=== PATIENT | female | born 1990 | race Caucasian/White ===

== ENCOUNTER 2020-06-16 21:48 | Emergency (ER) | payer OTHER, SELFPAY ==
--- NOTE | ~2020-06-16 | CT_ITS ---
EXAMINATION: CTA chest PE protocol DATE: 06/16/2020 23:46 INDICATION: Pleuritic chest pain. Elevated d-dimer. TECHNIQUE: Computed tomography (CT) pulmonary angiogram of the chest was performed with 100 mL Omnipa que-350 intravenous contrast. Additional 3D reconstructions utilizing coronal maximum intensity proje ction (MIP) were performed. Automated exposure control and iterative reconstruction technique were em ployed. The dose-length product was 954.73 mGy-cm. COMPARISON: None FINDINGS: Excellent contrast opacification of the pulmonary arteries. There is mild streak artifact from dense contrast in the superior vena cava and right atrium. Mild scattered respiratory motion artifact which does not significantly limit evaluation. No pulmonary embolism. Minimal atelectasis in the dependent lungs. No pneumonia, pulmonary edema, pleural effusion or pneumothorax. Heart size is normal. No per icardial effusion. Thoracic aorta is normal in caliber with no dissection. No pathologically enlarged thoracic lymphadenopathy. Visualized upper abdomen and bones are unremarkable. IMPRESSION: 1. No pulmonary embolism or other acute cardiopulmonary disease. Reviewed, dictated and finalized at location A.
--- NOTE | ~2020-06-16 | XR_ITS ---
EXAMINATION: XR chest 2V DATE: 06/16/2020 22:39 INDICATION: Right-sided chest pain TECHNIQUE: PA and lateral views of the chest were obtained. COMPARISON: Chest radiograph dated 10/12/2009 FINDINGS: The lungs remain clear with no focal airspace opacities, pulmonary edema, pleural effusion or pneumot horax. The cardiomediastinal silhouette is normal. Visualized bones and soft tissues are unremarkable . IMPRESSION: 1. No acute cardiopulmonary disease. Reviewed, dictated and finalized at location A.
[2020-06-16 21:52] VITALS: BP 156/109; PULSE 77; RESP 16; TEMP 36.8; O2SAT 99
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
--- NOTE | 2020-06-16 22:33 | PC.NURSE ---
pt to xray at this time via stretcher
[2020-06-16 23:12] LABS: Basophils Percent Auto 0.5 % (0.2-1.2); Eosinophils Absolute Auto 0.2 K/mm3 (0-0.3); Eosinophils Percent Auto 2.1 % (0-4.4); Hematocrit 40.3 % (37.0-47.0); Hemoglobin 13.5 g/dL (12.0-15.0); Immature Granulocyte Absolute 0.03 K/mm3 (0.00-0.031); Immature Granulocyte Percent A 0.3 % (0-0.5); Lymphocytes Absolute Auto 3.24 K/mm3 (0.9-3.2); Mean Corpuscular HGB Conc 33.5 g/dl (32-36); Mean Corpuscular Hemoglobin 32.1 pg (26-34); Mean Platelet Volume 12.2 fl (7.4-10.4); Monocytes Absolute Auto 0.5 K/mm3 (0.1-0.6); Monocytes Percent Auto 5.7 % (2.6-8.5); Neutrophils Absolute Auto 4.8 K/mm3 (1.3-6.7); Neutrophils Percent Auto 54.4 % (45.5-73.1); Platelet Count Result 267 k/mm3 (150-375); Red Cell Distribution Width 12.5 % (11.5-14.5); White Blood Count 8.8 K/mm3 (4.5-10.0)
[2020-06-16 23:17] LABS: Anion Gap 6 mmol/L (8-16); Blood Urea Nitrogen 20 mg/dL (7-17); Calcium 8.6 mg/dL (8.4-10.2); Carbon Dioxide 25 mmol/L (22-30); Chloride 108 mmol/L (98-107); Estimated Glomerular Filt Rate > 60; Glucose 125 mg/dL (65-105); Partial Thromboplastin Time 29.3 SECONDS (22.3-36.8); Potassium 3.6 mmol/L (3.4-5.0); Sodium 139 mmol/L (137-145)
[2020-06-16] MEDS: ONDANSETRON INJ 4 MG/2 ML VIAL IV PUSH (23:17)
[2020-06-16] MEDS: MORPHINE SULFATE (*CRX) 4 MG/ML INJ IV PUSH (23:18)
[2020-06-16 23:19] LABS: D Dimer 0.64 ug/mL (<0.48)
[2020-06-16 23:24] LABS: Troponin I < 0.012 ng/mL (0.000-0.034)
--- NOTE | 2020-06-16 23:26 | ECG_ITS ---
Measurements Intervals [place] Rate: 85 P: 54 AK: 171 QRS: -9 QRSD: 115 T: 41 QT: 357 QTc: 427 Interpretive Statements SINUS RHYTHM INTRAVENTRICULAR CONDUCTION DELAY BORDERLINE R WAVE PROGRESSION, ANTERIOR LEADS BORDERLINE ECG Electronically Signed On 06-17-2020 6:26:11 CDT by Chris Herrera D.O.
[2020-06-16 23:27] VITALS: BP 135/85; PULSE 72; RESP 22; O2SAT 99
[2020-06-17 00:47] VITALS: BP 124/73; PULSE 71; RESP 18; O2SAT 98
[2020-06-17 00:47] LABS: Troponin I < 0.012 ng/mL (0.000-0.034)
[2020-06-17 01:17] VITALS: BP 124/78; PULSE 64; RESP 20; O2SAT 98
== END 2020-06-17 01:20 | disposition home or self-care (01) ==
PROVIDERS: Emergency Provider Emergency Medicine; PCP Pediatrics
DX: R07.89 Other chest pain (principal); Z87.442 Personal history of urinary calculi; Z87.440 Personal history of urinary (tract) infections; F17.210 Nicotine dependence, cigarettes, uncomplicated; I45.9 Conduction disorder, unspecified; R94.31 Abnormal electrocardiogram [ECG] [EKG]
CPT/HCPCS: 36415; 71046; 71275; 80048; 81025; 84484; 85025; 85380; 85610; 85730; 93005; 96374; 96375; 99284; J2270; J2405; Q9967

== ENCOUNTER 2020-06-28 15:23 | Outpatient (CLI) | payer OTHER, SELFPAY ==
--- NOTE | ~2020-06-28 | US_ITS ---
EXAMINATION:US venous doppler LE BI INDICATION:Elevated d-dimer TECHNIQUE: Multiple grayscale, color flow and Doppler images of the right and left lower extremity de ep venous systems were obtained and reviewed. COMPARISON:No prior studies for comparison. FINDINGS: The common femoral, superficial femoral and popliteal veins demonstrate normal respiratory variation, augmentation and compressibility. Color flow is also seen within the posterior tibial, pe roneal, greater saphenous and profunda veins. IMPRESSION: 1: No lower extremity deep venous thrombosis. Reviewed, dictated and finalized at location A.
== END 2020-06-28 15:24 | disposition home or self-care (01) ==
PROVIDERS: PCP Internal Medicine; Visit Provider Internal Medicine
DX: R79.1 Abnormal coagulation profile (principal)
CPT/HCPCS: 93970

== ENCOUNTER 2021-07-19 10:54 | Emergency (ER) | payer BC, OTHER, SELFPAY ==
--- NOTE | ~2021-07-19 | CT_ITS ---
EXAMINATION: CT abdomen pelvis w con EXAM DATE: 07/19/2021 13:08 INDICATION: Fever, abdominal pain. TECHNIQUE: Spiral CT of the abdomen and pelvis was performed following intravenous injection of 100 m L Omnipaque 350. Axial, coronal and sagittal images of the abdomen and pelvis were reviewed. The do se-length product (DLP) for this examination was 952.57 mGy-cm. The exposure was tailored according to patient size (auto mA exposure control), and iterative reconstruction (ASIR) was used as additiona l dose reduction technique. Prior study from 2010 not retrieving at this time. FINDINGS: The liver, spleen, adrenal glands and pancreas are unremarkable. Gallbladder is unremarkab le. No biliary obstruction. Portal and splenic veins are patent. Kidneys enhance symmetrically. T here is no hydronephrosis. The uterus is anteverted and morphologically normal. The bladder is un remarkable. There is no retroperitoneal or pelvic lymphadenopathy. The appendix is normal. Mild scattered colonic diverticulosis with inflammation at the splenic flexur e of the colon around a diverticulum, consistent with acute uncomplicated diverticulitis. The stomac h and small bowel are unremarkable. There is expected amount of colonic stool. No free intraperito van gas. The heart is normal in size. There are no pericardial or pleural effusions. The lung ba ses are unremarkable. The bones are unremarkable. IMPRESSION: Acute uncomplicated colonic diverticulitis at splenic flexure. Reviewed, dictated and finalized at location A. REMOVER
[2021-07-19 11:02] VITALS: BP 153/95; PULSE 68; RESP 16; TEMP 36.2; O2SAT 100
[2021-07-19 11:30] VITALS: BP 132/88; BP 141/87; PULSE 59; PULSE 74
[2021-07-19 11:32] VITALS: BP 139/100; PULSE 74
--- NOTE | 2021-07-19 12:04 | ED.ABDPAIN ---
HPI - Abdominal Pain General Chief Complaint: Abdominal Pain Stated Complaint: adb pain, fever Time Seen by Provider: 07/19/21 11:52 Source: patient Mode of arrival: ambulatory Limitations: no limitations History of Present Illness HPI narrative: This is a 30 year old female that presents to the ER for abdominal pain present over the last couple of days. Reports the pain is dull in nature. Also reports some flank pain. Reports history of recurrent UTIs, she is supposed to be on prophylactic antibiotics for this but is not currently. Also reports low-grade fevers and dysuria. Denies nausea, vomiting, or hematuria. Related Data Allergies Allergy/AdvReac Type Severity Reaction Status Date / Time doxycycline Allergy Mild Rash Verified 07/19/21 11:25 Penicillins Allergy Mild Rash Verified 07/19/21 11:25 tetracycline Allergy Mild Rash Verified 07/19/21 11:25 peanut oil Allergy Unknown Hives Verified 07/19/21 11:25 PEANUTS Allergy Mild Swelling Uncoded 07/19/21 11:25 of Lip/Tongue/Throat Review of Systems Review of Systems: CONSTITUTIONAL: Reports fever GASTROINTESTINAL: Reports abdominal pain. Denies nausea, vomiting, or diarrhea. GENITOURINARY: Reports dysuria. Denies hematuria. All systems reviewed & are unremarkable except as noted in HPI and below PMFSH Past Medical History Medical History (Updated 07/19/21 @ 14:52 by Carolina Goncalves PA-C) Nephrolithiasis Pyelonephritis Recurrent urinary tract infection Social History Social History (System 09/10/20 @ 14:41 by Jarrett Jones) Smoking status: Current every day smoker Tobacco type: cigarettes Alcohol intake: current Alcohol use details: Social, rarely Gender identity (if verbalized by the patient): Female Exam Narrative: GENERAL: Well-appearing, well-nourished, and in no acute distress. HEAD: Normocephalic, atraumatic. EYES: EOMI. CHEST: Clear to auscultation. No respiratory distress. No wheezes rales or rhonchi HEART: Regular rate and rhythm. No murmur heard. Normal peripheral pulses. ABDOMEN: Soft, nontender, nondistended, normal active bowel sounds. No CVA tenderness EXTREMITIES: Normal range of motion. No edema. SKIN: Warm, dry, no rash. NEURO: No focal deficits. Alert and oriented x3. PSYCH: Normal mood and affect Course Vital Signs Vital signs: Vital Signs Temperature 97.2 F L 07/19/21 11:02 Pulse Rate 68 07/19/21 11:02 Respiratory Rate 16 07/19/21 11:02 Blood Pressure 153/95 H 07/19/21 11:02 Pulse Oximetry 100 07/19/21 11:02 Temperature 97.2 F L 07/19/21 11:02 Pulse Rate 74 07/19/21 11:32 Respiratory Rate 16 07/19/21 11:02 Blood Pressure 139/100 H 07/19/21 11:32 Pulse Oximetry 100 07/19/21 11:02 MDM - Abdominal Pain MDM Narrative Medical decision making narrative: Patient presents to the emergency department for abdominal pain and low-grade fevers. She is afebrile in the ED and nontoxic-appearing. CBC is without leukocytosis. Does show mild hemoconcentration. Patient hydrated while in the ED. Metabolic panel and lipase without concerning findings. UA without evidence of infection. There are 4-6 white blood cells, but many squamous epithelial cells. This will be sent for her. Bedside test is negative. CT scan abdomen pelvis shows acute uncomplicated colonic diverticulitis at splenic flexure. Patient was updated on case findings. Will be started on oral antibiotics. She is stable and felt appropriate for further outpatient evaluation. She was given warnings to return to the ER Lab Data Attestation: I reviewed the patient's lab results. Result diagrams: 07/19/21 12:02 07/19/21 12:02 Labs: Lab Results 07/19/21 07/19/21 07/19/21 Range/Units 11:54 12:02 12:02 WBC 9.0 (4.5-10.0) K/mm3 RBC 4.67 (4.2-5.4) M/mm3 Hgb 15.3 H (12.0-15.0) g/dL Hct 44.9 (37.0-47.0) % MCV 96.1 (80-100) fl MCH 32.8 (26-34) pg MCHC
--- NOTE | 2021-07-19 12:07 | ECG_ITS ---
Measurements Intervals [place] Rate: 54 P: 51 RI: 182 QRS: -6 QRSD: 105 T: 19 QT: 413 QTc: 395 Interpretive Statements SINUS BRADYCARDIA DELAYED PRECORDIAL R/S TRANSITION BORDERLINE ECG Electronically Signed On 07-19-2021 19:47:13 FRONT OFFICE DIRECTOR by Chris Herrera D.O.
[2021-07-19 12:26] LABS: Basophils Percent Auto 0.4 % (0.2-1.2); Eosinophils Absolute Auto 0.2 K/mm3 (0-0.3); Eosinophils Percent Auto 1.8 % (0-4.4); Hematocrit 44.9 % (37.0-47.0); Hemoglobin 15.3 g/dL (12.0-15.0); Immature Granulocyte Absolute 0.02 K/mm3 (0.00-0.031); Immature Granulocyte Percent A 0.2 % (0-0.5); Lymphocytes Absolute Auto 2.06 K/mm3 (0.9-3.2); Lymphocytes Percent Auto 22.9 % (18.3-44.2); Mean Corpuscular HGB Conc 34.1 g/dl (32-36); Mean Corpuscular Hemoglobin 32.8 pg (26-34); Mean Corpuscular Volume 96.1 fl (80-100); Mean Platelet Volume 11.9 fl (7.4-10.4); Monocytes Absolute Auto 0.4 K/mm3 (0.1-0.6); Monocytes Percent Auto 4.4 % (2.6-8.5); Neutrophils Absolute Auto 6.3 K/mm3 (1.3-6.7); Neutrophils Percent Auto 70.3 % (45.5-73.1); Platelet Count Result 299 k/mm3 (150-375); Red Blood Count 4.67 M/mm3 (4.2-5.4); Red Cell Distribution Width 12.8 % (11.5-14.5)
[2021-07-19 12:36] LABS: Add Urine Microscopic? YES; Appearance Urine Cloudy (Clear); Bacteria Urine Trace /hpf; Bilirubin Urine Negative (Negative); Blood Urine Negative (Negative); Color Urine Yellow (Yellow); Glucose Urine UA Negative (Negative); Ketones Urine Negative (Negative); Leukocyte Esterase Ur 1+ LEU/UL (Negative); Mucus Urine Rare /lpf; Nitrate Urine Negative (Negative); Protein Urine Negative (Negative); Specific Grav Ur 1.018 (1.001-1.035); Squamous Epithelial Cell Urine Many /hpf (Few); Urobilinogen Urine Negative mg/dL (<2.0)
[2021-07-19 12:39] LABS: Alanine Aminotransferase 17 U/L (4-35); Albumin Level 4.6 g/dL (3.5-5.1); Alkaline Phosphatase 64 U/L (38-126); Anion Gap 10 mmol/L (8-16); Aspartate Amino Transferase 27 U/L (14-36); Bilirubin,Total 0.4 mg/dL (0.2-1.3); Blood Urea Nitrogen 14 mg/dL (7-17); Calcium 9.7 mg/dL (8.4-10.2); Carbon Dioxide 21 mmol/L (22-30); Chloride 106 mmol/L (98-107); Estimated CRCL calculation 110 ml/min; Estimated Glomerular Filt Rate > 60; Glucose 87 mg/dL (65-110); Lipase 51 U/L (23-300); Potassium 4.5 mmol/L (3.4-5.0); Sodium 137 mmol/L (137-145)
[2021-07-19] MEDS: SODIUM CHLORIDE 0.9% IV 1,000 ML 999 ML IV CONT (12:46)
[2021-07-19] MEDS: FAMOTIDINE 20 MG/2 ML VIAL IV PUSH (12:47)
[2021-07-19] MEDS: ONDANSETRON INJ 4 MG/2 ML VIAL IV PUSH (12:47)
[2021-07-19 15:19] VITALS: BP 133/93; PULSE 63; RESP 16; TEMP 36.4; O2SAT 98
== END 2021-07-19 15:20 | disposition home or self-care (01) ==
PROVIDERS: Emergency Provider Emergency Medicine
DX: K57.32 Diverticulitis of large intestine without perforation or abscess without bleeding (principal); F17.210 Nicotine dependence, cigarettes, uncomplicated; Z87.440 Personal history of urinary (tract) infections; Z87.442 Personal history of urinary calculi
CPT/HCPCS: 36415; 74177; 80053; 81001; 81025; 83690; 85025; 87086; 93005; 96361; 96374; 96375; 99284; J0131; J2405; J7030; Q9967

== ENCOUNTER 2023-05-22 12:34 | Emergency (ER) | payer OTHER, MEDICAID, SELFPAY ==
[2023-05-22 12:45] VITALS: BP 132/90; PULSE 76; RESP 16; TEMP 36.6; O2SAT 100
--- NOTE | 2023-05-22 12:50 | ED.EYEPROB ---
HPI - Eye Problem General Chief complaint: Eye Problems Stated complaint: Rt Eye Irritation Time Seen by Provider: 05/22/23 12:46 Source: patient, RN notes reviewed and old records reviewed Mode of arrival: ambulatory Limitations: no limitations History of Present Illness HPI Narrative: 32-year-old female presents to the [facility] with complaints of right eye pain. States that she was trying on a sure when a tag from the sure scratched her eye. last tDap 05/2019 States that she had a lot of tearing and pain yesterday. States when her eyes are dilated that she sees a little line in the outer aspect. Denies any change in vision otherwise. Related Data Patient tetanus UTD: Yes Home Medications Medication Instructions Recorded Confirmed etonogestrel 68 mg subdermal See Rx Instructions .Route .COMPLEX 05/22/23 05/22/23 implant (Nexplanon) Allergies Allergy/AdvReac Type Severity Reaction Status Date / Time peanut oil Allergy Severe Swelling Verified 05/22/23 12:42 of Lip/Tongue/Throat doxycycline AdvReac Mild Rash Verified 05/22/23 12:42 Penicillins AdvReac Mild Rash Verified 05/22/23 12:42 tetracycline AdvReac Mild Rash Verified 05/22/23 12:42 PEANUTS Allergy Severe Swelling Uncoded 05/22/23 12:42 of Lip/Tongue/Throat Review of Systems Review of Systems: All systems reviewed & are unremarkable except as noted in HPI and below Constitutional: Constitutional: Reports no additional constitutional complaints Eyes: Eyes: Reports as per HPI, Reports irritation and Reports eye pain ENT: Reports system reviewed and no additional complaints, except as documented Cardiovascular: Cardiovascular: Reports no additional cardiovascular complaints, Denies chest pain and Denies dyspnea Respiratory: Respiratory: Reports no additional respiratory complaints, Denies chest congestion, Denies cough and Denies dyspnea Gastrointestinal: Gastrointestinal: Reports no additional gastrointestinal complaints, Denies abdominal pain, Denies nausea and Denies vomiting Musculoskeletal: Musculoskeletal: Reports no additional musculoskeletal complaints Integumentary/Breasts: Skin/Breast: Reports system reviewed and no additional complaints, except as docu Neurologic: Reports system reviewed and no additional complaints, except as documented Psychiatric: Psychiatric: Reports no additional psychiatric complaints Allergic/Immunologic: Allergic/Immunologic: Reports no additional allergic/immunologic complaints PMFSH Past Medical History Medical History Depression Diverticulosis H/O hidradenitis suppurativa Hidradenitis Nephrolithiasis Pyelonephritis Recurrent urinary tract infection Family History Family History Father Basal cell carcinoma Mother Depression Alcoholism Sibling Depression Grandparent Heart disease Hypertension Cerebrovascular accident Social History Social History Smoking packs per day: 5 Smoking cigarettes per day: 100.0 Smoking status: Current every day smoker Tobacco type: cigarettes Alcohol intake: never Alcohol use details: Social, rarely Substance use: unknown Lack of Transportation: No Lack of Food: Never True Current Housing: I Have Housing Concerned About Future Housing: No Difficulty Paying Gas/Electric Bills: No Difficulty Paying for Meds: No Currently Unemployed: No Education: Associate Degree Difficulty w/ Childcare or Family Care: No Living arrangements: with family Gender identity (if verbalized by the patient): Female Comments At the time of my signature, I reviewed and agree with the nursing past medical, surgical, social, and family history. There is no relevant family history pertinent to the patient complaint. Exam Const: General: cooperative, healthy appearing,
== END 2023-05-22 13:05 | disposition home or self-care (01) ==
PROVIDERS: Emergency Provider Nurse Practitioner; PCP Physician Assistant
DX: S05.01XA Injury of conjunctiva and corneal abrasion without foreign body, right eye, initial encounter (principal); W22.8XXA Striking against or struck by other objects, initial encounter; F17.210 Nicotine dependence, cigarettes, uncomplicated; F32.A Depression, unspecified
CPT/HCPCS: 99213; A9270; G0463

== ENCOUNTER 2023-06-18 20:32 | Emergency (ER) | payer OTHER, MEDICAID, SELFPAY ==
[2023-06-18 20:36] VITALS: BP 140/96; PULSE 110; RESP 14; TEMP 36.8; O2SAT 98
--- NOTE | 2023-06-18 21:33 | ED.DENTAL ---
HPI - Dental/Oral General Chief complaint: Dental/Oral Stated complaint: dental pain Time Seen by Provider: 06/18/23 21:12 Source: patient Mode of arrival: ambulatory Limitations: no limitations History of Present Illness HPI Narrative: Patient is a 32-year-old female who presents to the ED with report of dental pain. Patient reports having pain along her right lower posterior teeth/previous wisdom tooth extraction site (#32) for the last 1 week. Pain has been worsening over the week. She has been taking ibuprofen with some relief. She reports some purulent drainage with flossing, but otherwise denies drainage with eating. Denies swelling along lateral cheek. Denies fevers. Denies difficulty breathing or swallowing. Patient was unable to get into her dentist today. Related Data Home Medications Medication Instructions Recorded Confirmed etonogestrel 68 mg subdermal See Rx Instructions .Route .COMPLEX 05/22/23 05/22/23 implant (Nexplanon) Allergies Allergy/AdvReac Type Severity Reaction Status Date / Time peanut oil Allergy Severe Swelling Verified 06/18/23 20:50 of Lip/Tongue/Throat doxycycline AdvReac Mild Rash Verified 06/18/23 20:50 Penicillins AdvReac Mild Rash Verified 06/18/23 20:50 tetracycline AdvReac Mild Rash Verified 06/18/23 20:50 PEANUTS Allergy Severe Swelling Uncoded 06/18/23 20:40 of Lip/Tongue/Throat Review of Systems Review of Systems: CONSTITUTIONAL: Denies fever, chills, or sweats. ENT: See HPI. CARDIOVASCULAR: Denies chest pain. RESPIRATORY: Denies dyspnea. GASTROINTESTINAL: Denies abdominal pain, nausea, vomiting. All systems reviewed & are unremarkable except as noted in HPI and below PMFSH Past Medical History Medical History Depression Diverticulosis H/O hidradenitis suppurativa Hidradenitis Nephrolithiasis Pyelonephritis Recurrent urinary tract infection Family History Family History Father Basal cell carcinoma Mother Depression Alcoholism Sibling Depression Grandparent Heart disease Hypertension Cerebrovascular accident Social History Social History Smoking packs per day: 5 Smoking cigarettes per day: 100.0 Smoking status: Current every day smoker Tobacco type: cigarettes Alcohol intake: never Alcohol use details: Social, rarely Substance use: unknown Lack of Transportation: No Lack of Food: Never True Current Housing: I Have Housing Concerned About Future Housing: No Difficulty Paying Gas/Electric Bills: No Difficulty Paying for Meds: No Currently Unemployed: No Education: Associate Degree Difficulty w/ Childcare or Family Care: No Living arrangements: with family Gender identity (if verbalized by the patient): Female Exam Narrative: GENERAL: Well appearing, morbidly obese with BMI of 43.1, non-toxic, in no acute distress. HEAD: Normocephalic, atraumatic. ENT: TTP surrounding inner and outer gumline of tooth #32 and wisdom tooth site R lower posterior region. No focal abscess or drainage. No tenderness along right facial cheek, parotid region. No drainage noted from glands. No tonsillar hypertrophy or exudate. Uvula midline. Maintaining secretions. No trismus or stridor. NECK: Supple. No adenopathy, no masses. RESPIRATORY: Airway patent, respirations nonlabored. Clear to auscultation bilaterally, no rales, rhonchi, wheezing. No stridor or distress. CARDIOVASCULAR: Regular rate and rhythm without murmurs, rubs, or gallops. Radial pulses 2+ and equal bilaterally. MUSCULOSKELETAL: Moves all extremities. No gross deformities. SKIN: Warm, dry, normal color. No rashes. NEURO: A&O X3. Speech clear. Cranial nerves II-XII grossly intact. Steady gait. No ataxic movements. PSYCHIATRIC: Appropriate mood and affect. Nor
[2023-06-18] MEDS: CLINDAMYCIN HCL 150 MG CAP 450 MG PO (21:58)
[2023-06-18] MEDS: HYDROcodone/acetaminophen (*CRX) 5-325 MG TABLET 1 TAB PO (21:58)
== END 2023-06-18 22:03 | disposition home or self-care (01) ==
PROVIDERS: Emergency Provider Physician Assistant; PCP Physician Assistant
DX: K08.89 Other specified disorders of teeth and supporting structures (principal); F17.210 Nicotine dependence, cigarettes, uncomplicated
CPT/HCPCS: 99283; A9270

== ENCOUNTER 2023-08-13 15:04 | Outpatient (CLI) | payer OTHER, MEDICAID, SELFPAY ==
[2023-08-13 15:33] LABS: Appearance Urine Clear (Clear); Bilirubin Urine Negative (Negative); Blood Urine Negative (Negative); Color Urine Yellow (Yellow); Glucose Urine UA Negative (Negative); Ketones Urine Negative (Negative); Leukocyte Esterase Ur Negative LEU/UL (NEGATIVE); Nitrate Urine Negative (Negative); Protein Urine Negative (Negative); Specific Grav Ur 1.002 (1.001-1.035); Urobilinogen Urine 0.2 mg/dL (<2.0)
[2023-08-13 15:38] LABS: Add Urine Microscopic? NO
== END 2023-08-13 15:05 | disposition home or self-care (01) ==
LOC: ANHLAB 15:07
PROVIDERS: PCP Physician Assistant; Visit Provider Physician Assistant
DX: R30.0 Dysuria (principal)
CPT/HCPCS: 81003; 87086

== ENCOUNTER 2023-08-24 16:19 | Emergency (ER) | payer OTHER, MEDICAID, SELFPAY ==
[2023-08-24 16:25] VITALS: BP 166/87; PULSE 84; RESP 16; TEMP 36.6; O2SAT 98
--- NOTE | 2023-08-24 20:08 | PC.NURSE ---
Pt approached triage desk and states she is going to leave. Pt ambulated out of ED in no obvious distress.
== END 2023-08-24 21:04 | disposition left against medical advice (07) ==
LOC: ANHED 20:26
PROVIDERS: PCP Physician Assistant
DX: Z53.21 Procedure and treatment not carried out due to patient leaving prior to being seen by health care provider (principal)
CPT/HCPCS: 99199

== ENCOUNTER 2023-08-25 10:15 | Emergency (ER) | payer OTHER, MEDICAID, SELFPAY ==
--- NOTE | ~2023-08-25 | US_ITS ---
EXAMINATION: US pelvic complete w TV DATE: 08/25/2023 16:27 INDICATION: Pelvic pain Comparison:No prior studies for comparison. TECHNIQUE: Multiple transabdominal and endovaginal sonographic images of the pelvis performed. FINDINGS: The uterus measures 9 x 3.7 x 5 cm. There is a focal hyperechoic structure at the cervix ne ar the scar, likely fibrosis from prior surgery. The endometrial complex measures 3 mm. The right ovary measures 2.6 x 2 x 1.8 cm and the left ovary measures 1.9 x 1.4 x 1.5 cm. There are small follicles in each ovary. Normal doppler signal in both ovaries. There is no free fluid in the pelvis. There are no abnormal masses seen on either side. IMPRESSION: 1. Unremarkable pelvic ultrasound. Reviewed, dictated and finalized at location B. HER CURLING MACHINE OPERATOR
[2023-08-25 10:17] VITALS: BP 152/98; PULSE 75; RESP 20; TEMP 36.3; O2SAT 98
--- NOTE | 2023-08-25 14:49 | ED.FEMALEGU ---
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 Ongoing over the last month. Reports abnormal discharge that she is unsure if it is coming from her vagina or in her urine. She has a Nexplanon and has been having more irregular periods than usual. Reports some nausea. No conern for STDs. Denies fever, vomiting. Related Data Home Medications Medication Instructions Recorded Confirmed etonogestrel 68 mg subdermal See Rx Instructions .Route .COMPLEX 05/22/23 05/22/23 implant (Nexplanon) Allergies Allergy/AdvReac Type Severity Reaction Status Date / Time peanut oil Allergy Severe Swelling Verified 06/18/23 20:50 of Lip/Tongue/Throat doxycycline AdvReac Mild Rash Verified 06/18/23 20:50 Penicillins AdvReac Mild Rash Verified 06/18/23 20:50 tetracycline AdvReac Mild Rash Verified 06/18/23 20:50 PEANUTS Allergy Severe Swelling Uncoded 06/18/23 20:40 of Lip/Tongue/Throat Review of Systems Review of Systems: CONSTITUTIONAL: Denies fever GASTROINTESTINAL: Reports abdominal pain, nausea. Denies vomiting, or diarrhea. GENITOURINARY: Reports dysuria All systems reviewed & are unremarkable except as noted in HPI and below PMFSH Past Medical History Medical History Depression Diverticulosis H/O hidradenitis suppurativa Hidradenitis Nephrolithiasis Pyelonephritis Recurrent urinary tract infection Family History Family History Father Basal cell carcinoma Mother Depression Alcoholism Sibling Depression Grandparent Heart disease Hypertension Cerebrovascular accident Social History Social History Smoking packs per day: 5 Smoking cigarettes per day: 100.0 Smoking status: Current every day smoker Tobacco type: cigarettes Alcohol intake: never Alcohol use details: Social, rarely Substance use: unknown Lack of Transportation: No Lack of Food: Never True Current Housing: I Have Housing Concerned About Future Housing: No Difficulty Paying Gas/Electric Bills: No Difficulty Paying for Meds: No Currently Unemployed: No Education: Associate Degree Difficulty w/ Childcare or Family Care: No Living arrangements: with family Gender identity (if verbalized by the patient): Female Exam Narrative: GENERAL: Well-appearing, well-nourished, and in no acute distress. HEAD: Normocephalic, atraumatic. EYES: EOMI. CHEST: Clear to auscultation. No respiratory distress. No wheezes rales or rhonchi HEART: Regular rate and rhythm. No murmur heard. Normal peripheral pulses. ABDOMEN: Soft, nontender, nondistended, normal active bowel sounds. EXTREMITIES: Normal range of motion. No edema. SKIN: Warm, dry, no rash. NEURO: No focal deficits. Alert and oriented x3. PSYCH: Normal mood and affect PELVIC: Normal external genitalia. Normal appearing cervix. Small amount of dark red blood in the vaginal vault Course Course Emergency Course: Patient updated on workup and agrees with plan of care Vital Signs Vital signs: Vital Signs Temperature 97.4 F L 08/25/23 10:17 Pulse Rate 75 08/25/23 10:17 Respiratory Rate 20 08/25/23 10:17 Blood Pressure 152/98 H 08/25/23 10:17 Pulse Oximetry 98 08/25/23 10:17 Oxygen Delivery Room Air 08/25/23 10:17 Temperature 97.4 F L 08/25/23 10:17 Pulse Rate 75 08/25/23 10:17 Respiratory Rate 20 08/25/23 10:17 Blood Pressure 152/98 H 08/25/23 10:17 Pulse Oximetry 98 08/25/23 10:17 Oxygen Delivery Room Air 08/25/23 10:17 MDM - Female Genitourinary MDM Narrative
[2023-08-25 14:57] LABS: Basophils Percent Auto 0.3 % (0.2-1.2); Eosinophils Absolute Auto 0.2 K/mm3 (0-0.3); Eosinophils Percent Auto 1.4 % (0-4.4); Hematocrit 45.5 % (37.0-47.0); Immature Granulocyte Absolute 0.04 K/mm3 (0.00-0.031); Immature Granulocyte Percent A 0.3 % (0-0.5); Lymphocytes Absolute Auto 3.19 K/mm3 (0.9-3.2); Lymphocytes Percent Auto 27.8 % (18.3-44.2); Mean Corpuscular Hemoglobin 31.6 pg (26-34); Mean Platelet Volume 11.7 fl (7.4-10.4); Monocytes Absolute Auto 0.5 K/mm3 (0.1-0.6); Neutrophils Absolute Auto 7.6 K/mm3 (1.3-6.7); Neutrophils Percent Auto 66.2 % (45.5-73.1); Platelet Count Result 329 k/mm3 (150-375); Red Blood Count 4.74 M/mm3 (4.2-5.4); Red Cell Distribution Width 12.4 % (11.5-14.5); White Blood Count 11.5 K/mm3 (4.5-10.0)
[2023-08-25 15:06] LABS: Appearance Urine Cloudy (Clear); Blood Urine 3+ (Negative); Color Urine Yellow (Yellow); Glucose Urine UA Negative (Negative); Ketones Urine Negative (Negative); Protein Urine Negative (Negative); Specific Grav Ur 1.007 (1.001-1.035); pH Urine 6.5 (5.0-9.0)
[2023-08-25 15:07] LABS: Bacteria Urine None Seen /hpf; Bilirubin Urine Negative (Negative); Leukocyte Esterase Ur Trace LEU/UL (Negative); Need Manual Microscopic Reviewed; Nitrate Urine Negative (Negative); Non Pathogenic Casts 0-2; RBC Urine 21-50 /hpf (0-2); Squamous Epithelial Cell Urine Few /hpf (Few); Urobilinogen Urine 0.2 mg/dL (<2.0); WBC Urine 0-5 /hpf
[2023-08-25 15:09] LABS: Add Urine Microscopic? YES
--- NOTE | 2023-08-25 15:31 | PC.NURSE ---
pt to ultrasound via wheelchair
[2023-08-25 15:42] LABS: Alanine Aminotransferase 25 U/L (6-35); Albumin Level 4.2 g/dL (3.5-5.1); Alkaline Phosphatase 65 U/L (38-126); Anion Gap 8 mmol/L (8-16); Aspartate Amino Transferase 26 U/L (14-36); Bilirubin,Total 0.5 mg/dL (0.2-1.3); Blood Urea Nitrogen 17 mg/dL (7-17); Calcium 9.3 mg/dL (8.4-10.2); Carbon Dioxide 22 mmol/L (22-30); Chloride 108 mmol/L (98-107); Estimated CRCL calculation 90 ml/min; Estimated Glomerular Filt Rate > 60; Glucose 82 mg/dL (65-110); Potassium 3.9 mmol/L (3.4-5.0); Sodium 138 mmol/L (137-145)
[2023-08-25 17:27] VITALS: BP 130/88; PULSE 75; RESP 16
== END 2023-08-25 17:27 | disposition home or self-care (01) ==
PROVIDERS: Emergency Provider Physician Assistant; PCP Physician Assistant
DX: R10.2 Pelvic and perineal pain (principal); F17.210 Nicotine dependence, cigarettes, uncomplicated
CPT/HCPCS: 36415; 76830; 76856; 80053; 81001; 81025; 85025; 99284

== ENCOUNTER 2023-10-13 11:49 | Emergency (ER) | payer OTHER, MEDICAID, SELFPAY ==
--- NOTE | ~2023-10-13 | US_ITS ---
EXAMINATION: US venous doppler LE RT DATE: 10/13/2023 13:09 INDICATION: Right calf pain. TECHNIQUE: Grayscale ultrasound images without and with compression and Doppler ultrasound images of the right lower extremity veins were obtained. COMPARISON: Ultrasound 06/28/2020 FINDINGS: The visualized portions of right common femoral vein, profunda (deep) femoral vein, femoral vein, pop liteal vein, peroneal veins, posterior tibial veins, and greater saphenous vein outflow are patent. IMPRESSION: 1. No deep venous thrombosis. Reviewed, dictated and finalized at location A. UTIVE RELATIONS SPECIALIST
[2023-10-13 11:55] VITALS: BP 149/87; PULSE 75; RESP 16; TEMP 36.6; O2SAT 97
--- NOTE | 2023-10-13 13:45 | ED.EXTPRO ---
HPI - Extremity Problem General Chief complaint: Extremity Problem,Nontraumatic Stated complaint: r/o dvt Time Seen by Provider: 10/13/23 11:59 History of Present Illness HPI Narrative: Patient is a 30-year-old female who presents to the emergency department this afternoon complaining of right lower extremity cramps. Patient states that initially the cramps started in her right calf but now feels it in the back of her right thigh. Cramping is intermittent. Patient saw her PCP and was sent in to rule out a DVT. Patient admits that she takes controls and we used to be a smoker but quit tobacco approximately 1 month ago. She works from home and is currently in school which causes her to spend a lot of times sitting down. Denies any family history of clotting disorder believes that her great great grandmother had a bleeding disorder she is unsure of. Patient is currently denying any chest pain or shortness of breath, denies any injuries or falls to her right lower extremity. The remainder of history of present illness review of systems negative unless stated otherwise in the HPI. Related Data Allergies Allergy/AdvReac Type Severity Reaction Status Date / Time peanut oil Allergy Severe Swelling Verified 09/24/23 14:08 of Lip/Tongue/Throat doxycycline AdvReac Mild Rash Verified 09/24/23 14:08 Penicillins AdvReac Mild Rash Verified 09/24/23 14:08 tetracycline AdvReac Mild Rash Verified 09/24/23 14:08 PEANUTS Allergy Severe Swelling Uncoded 09/24/23 14:08 of Lip/Tongue/Throat Review of Systems Review of Systems: All systems are reviewed and are negative unless stated otherwise in the HPI. [facility] Past Medical History Medical History delivery delivered Depression Diverticulosis H/O hidradenitis suppurativa Hidradenitis Nephrolithiasis Pyelonephritis Recurrent urinary tract infection Family History Family History Father Basal cell carcinoma Mother Depression Alcoholism Sibling Depression Grandparent Heart disease Hypertension Cerebrovascular accident Social History Social History Smoking packs per day: 5 Smoking cigarettes per day: 100.0 Smoking status: Current every day smoker Tobacco type: cigarettes Alcohol intake: never Alcohol use details: Social, rarely Substance use: unknown Lack of Transportation: No Lack of Food: Never True Current Housing: I Have Housing Concerned About Future Housing: No Difficulty Paying Gas/Electric Bills: No Difficulty Paying for Meds: No Currently Unemployed: No Education: Associate Degree Difficulty w/ Childcare or Family Care: No Living arrangements: with family Gender identity (if verbalized by the patient): Female Exam Narrative: General: Alert, awake, afebrile, in no acute distress. HEENT: PERRL, no rhinorrhea, no post nasal drip, oropharynx clear. Neck: Trachea midline, no JVD, no lymphadenopathy. Cardiovascular: Regular rate and rhythm, no murmurs, rubs or gallops, no peripheral edema. Respiratory: Clear to auscultation bilaterally, no tachypnea, no wheezing, no rhonchi, no rubs, no respiratory distress. Abdomen: Soft, nontender, nondistended, no rebound, no guarding, no peritoneal signs. Musculoskeletal: No joint swelling or deformity, normal muscle tone, no right lower extremity swelling noted, compartments are soft and compressible, intact DP and PT pulses of the right lower extremity. Skin: No rashes or petechia, no signs of infection. Psychiatric: Alert and oriented, normal behavior and judgment for situation. Neurological: Alert and oriented to person, place, and time. Follows all commands. No focal deficits, speech is clear and fluent. Course Vital Signs Vital signs: Vital Signs Temperature 97.9 F 10/13/23 11:55 P
== END 2023-10-13 14:11 | disposition home or self-care (01) ==
PROVIDERS: Emergency Provider Emergency Medicine; PCP Physician Assistant
DX: M62.831 Muscle spasm of calf (principal); F17.210 Nicotine dependence, cigarettes, uncomplicated; F32.A Depression, unspecified; Z87.440 Personal history of urinary (tract) infections
CPT/HCPCS: 93971; 99284

== ENCOUNTER 2024-09-25 17:25 | Emergency (ER) | payer OTHER, MEDICAID, SELFPAY ==
--- OUTSIDE RECORDS SUMMARY | 2024-09-25 17:38 | XMS_ITS | Encounter Summary ---
Author Organization [facility] Address [address] [place] [address]. [place] [address] [place] [address] Care Team Providers Care Wire Lather Name Role Phone Rachna Rosales NP Primary Care Provider [phone] Encounter Details Date Type Department Care Team (Late Contact Info) Description 01/18/2024 Lifeshare Technologiest Message Enc [facility] [address] [phone] Rachna Rosales NP [address] [address] medication Social History Tobacco Use Types Packs/Day Years Used Date Smoking Tobacco: Former Cigarettes 0.7 22.5 Q uit: 08/30/2023 Passive Smoke Exposure: Past Smokeless Tobacco: Never Comments:cold turkey Alcohol Use Standard Drinks/Week Comments Yes 0 (1 standard drink = 0.6 oz pure alcohol) not really drinking. very occasional. PHQ-2 Answer Date Recorded Patient Health Questionnaire-2 Score 0 01/06/2024 Comments No Sex and Gender Information Value Date Recorded Sex Assigned at Not on file Legal Sex Female 8:17 PM CDT Gender Identity Not on file Sexual Orientation Straight 09/22/2021 5: 32 AM COOK ROAST documented as of this encounter Plan of Treatment Upcoming Encounters Date Type Department Care Team (Late Contact Info) Description 09/26/2024 12:20 PM COOK ROAST Office Visit [facility] [address] [phone] Mckenzie Loyd MD [address] [place] [address] 10/19/2024 9:20 AM COOK ROAST Office Visit [facility] - [place] [address] [facility] [address] [place] [address] Rachna Rosales NP [address] [place] [address] documented as of this encounter Visit Diagnoses Not on filedocumented in this encounter Additional Health Concerns Infection Onset Date Last Indicated Resolved Time COVID-19 Rule Out 06/23/2024 06/23/2024 06/23/2024 9:13 PM CDT Assessment Noted Time PHQ-9 Depression Total Score: 2 01/06/20 24 9:41 AM CDT documented as of this encounter Care Teams Wire Lather Relationship Specialty Start Date End Date Rachna Rosales NP [address] [place] [address] PCP - General NURSE PRACTITIONER 09/16/21 documented as of this encounter
--- OUTSIDE RECORDS SUMMARY | 2024-09-25 17:38 | XMS_ITS | Encounter Summary ---
Author Organization [facility] Address [address] [place] [address]. [place] [address] [place] [address] Care Team Providers Care Mold Hoister Name Role Phone Rachna Rosales NP Primary Care Provider [phone] Encounter Details Date Type Department Care Team (Late st Contact Info) Description 03/01/2024 vArmourt Message Enc [facility] [address] [phone] Rachna Rosales NP [address] [phone] Follow up Social History Tobacco Use Types Packs/Day Years [...] Sexual Orientation Straight 09/22/2021 5: 32 AM ERP SPECIALIST documented as of this encounter Plan of Treatment Upcoming Encounters Date Type Department Care Team (Late st Contact Info) Description 09/26/2024 12:20 PM ERP SPECIALIST Office Visit [facility] [address] [phone] Mckenzie Loyd MD [address] [place] [address] 10/19/2024 9:20 AM ERP SPECIALIST Office Visit [facility] Family Medicine - [place] [address] [facility] [address] [place] [address] Rachna Rosales NP [address] [place] [address] documented as of this encounter Visit Diagnoses Not on filedocumented in this encounter Additional Health Concerns Infection Onset Date Last Indicated Resolved Time COVID-19 Rule Out 06/23/2024 06/23/2024 06/23/2024 9:13 PM CDT Assessment Noted Time PHQ-9 Depression Total Score: 2 01/06/20 24 9:41 AM CDT documented as of this encounter Care Teams Mold Hoister Relationship Specialty Start Date End Date Rachna Rosales NP [address] [place] [address] [place] [address] PCP - General NURSE PRACTITIONER 09/16/21 documented as of this encounter
--- OUTSIDE RECORDS SUMMARY | 2024-09-25 17:38 | XMS_ITS | Encounter Summary ---
Author Organization [facility] Address [address] [place] [address]. [place] [address] [place] [address] Care Team Providers Care Application Support Analyst Name Role Phone Rachna Rosales NP Primary Care Provider [phone] [phone] Encounter Details Date Type Department Care Team (Late st Contact Info) Description 09/25/2024 Queue Software Inchart Message Enc [facility] [address] [phone] Rachna Rosales NP [address] [phone] urine check Social History Tobacco Use Types Packs/Day Years [...] Sexual Orientation Straight 09/22/2021 5: 32 AM WINTERIZER documented as of this encounter Plan of Treatment Upcoming Encounters Date Type Department Care Team (Late st Contact Info) Description 09/26/2024 12:20 PM WINTERIZER Office Visit [facility] [address] [phone] Mckenzie Loyd MD [address] [place] [address] 10/19/2024 9:20 AM WINTERIZER Office Visit [facility] Family [facility] - [place] [address] [facility] [address] [place] [address] Rachna Rosales NP [address] [place] [address] documented as of this encounter Visit Diagnoses Not on filedocumented in this encounter Additional Health Concerns Assessment Noted Time PHQ-9 Depression Total Score: 2 01/06/20 24 9:41 AM CDT documented as of this encounter Care Teams Application Support Analyst Relationship Specialty Start Date End Date Rachna Rosales NP [address] [place] [address] [place] [address] PCP - General NURSE PRACTITIONER 09/16/21 documented as of this encounter
--- OUTSIDE RECORDS SUMMARY | 2024-09-25 17:38 | XMS_ITS | Clinical Summary ---
Author Organization [facility] Address [address] [place] [address]. [place] [address] [place] [address] Care Team Providers Care Program Eligibility Specialist Name Role Phone Rachna Rosales NP Primary Care Provider [phone] [phone] Allergies Active Allergy Reactions Criticality Noted Date Comments Penicillins Hives,Rash Medium 09/30/2021 Medications ondansetron (ZOFRAN) 4 MG tabletIndication s:Nausea Take 1 tablet (4 mg total) by mouth every 8 (eight) hours as needed. 20 tablet 4 Active WINLEVI 1 % Cream 4 Active tirzepatide (MOUNJARO) 5 MG/0.5ML injectionIndicat ions:Diabetes Mellitus Inject 5 mg into the skin once a week. Indications: Diabetes 3 mL 3 4 Active spironolactone (ALDACTONE) 50 MG tablet Take 1 tablet (50 mg total) by mouth daily. 4 Active fluconazole (DIFLUCAN) 150 MG tabletIndication s:Vaginal yeast infection Take one tablet by mouth. May repeat in 72 hours if needed. 2 tablet 4 Active levothyroxine (SYNTHROID) 25 MCG tabletIndication s:Hypothyroidism , unspecified type TAKE 1 TABLET BY MOUTH EVERY MORNING 90 tablet 1 4 Active metFORMIN ER (GLUCOPHAGE-XR) 500 MG 24 hr tabletIndication s:Insulin resistance TAKE 1 TABLET BY MOUTH EVERY DAY WITH BREAKFAST 90 tablet 1 4 Active Active Problems Problem Noted Date Diagnosed Date Obesity (BMI 35.0-39.9 without comorbidity) 03/2022 Current smoker 09/30/2021 Genital herpes simplex, unspecified site 022 Anxiety 09/25/2021 Chronic post-traumatic stress disorder (PTSD) Depression 09/25/2021 Diverticulitis 08/12/2021 Encounters Date Type Department Care Team Description 09/25/2024 MyChart Message Enc [facility] [address] [place] [address] Rachna Rosales NP urine check 07/10/2024 Telephone [facility] [address] [place] [address] Rachna Rosales NP Yeast Infection; Medication Request from Last 3 Months Immunizations Name Administration Dates Next Due Hepatitis A (Generic) 05/13/2023 Family History Medical History Relation Comments Cancer Father Diabetes Father Kidney Disease Father father from stage 5 kidney disease 06/23/2023 Stroke Father Cancer Paternal Grandfather Relation Status Comments Father Paternal Grandfather Social History Tobacco Use Types Packs/Day Years Used Date Smoking Tobacco: Former Cigarettes 0.7 22.5 Q uit: 08/30/2023 Passive Smoke Exposure: Past Smokeless Tobacco: Never Tobacco Cessation:Counseling Given: Not Answered Comments:cold turkey Alcohol Use Standard Drinks/Week Comments [...] Sexual Orientation Straight 09/22/2021 5: 32 AM SYSTEMS DEVELOPMENT CONSULTANT Last Filed Vital Signs Vital Sign Reading Time Taken Comments Blood Pressure 130/80 06/23/2024 10:48 PM CDT Pulse 90 06/23/2024 10:48 PM CDT Temperature 36.1 ??C (97 ??F) 06/23/2024 10:48 PM CDT Respiratory Rate 18 06/23/2024 10:48 PM CDT Oxygen Saturation 98% 06/23/2024 10:48 PM CDT Inhaled Oxygen Concentration - - Weight 86.2 kg (190 lb) 06/23/2024 8:45 PM CDT Height 160 cm (5' 3 ) 06/23/2024 8:45 PM CDT Body Mass Index 33.66 06/23/2024 8:45 PM CDT Plan of Treatment Upcoming Encounters Date Type Department Care Team (Late st Contact Info) Description 09/26/2024 12:20 PM SYSTEMS DEVELOPMENT CONSULTANT Office Visit [facility] [address] [facility] [address] [place] [address] Mckenzie Loyd MD [address] [place], [place] [phone] 10/19/2024 9:20 AM SYSTEMS DEVELOPMENT CONSULTANT Office Visit [facility] [address] [facility] [address] [place] [address] Rachna Rosales NP [address] [place] [address] [place], [place] [address] Health Maintenance Due Date Last Done Comments Hepatitis B Vaccines (1 of 3 - 19+ 3-dose series) 2009 COVID-19 Vaccine (2023-2 5 season) 2024 Influenza Adult (#1) 2024 PHQ-2 (Physician [place]) 08/30/2024 01/06/2024 Annual Physical 01/05/2025 01/06/2024, 10/01/2022, 09/30/2021 Cervical Cancer Screening Pa p with HPV Testing (Age 30 to 64) Every 5 Years 12/05/2026 12/05/2021 Cervical Cancer Screening Pa p Smear (Age 30 to 64) Every 3 Years 01/30/2027 01/31/2024 Cervical Cancer Screening with HPV 01/30/2027 DTaP, Tdap and Td Vaccines ( 1 - Tdap) 08/30/2029 Postponed from 10/30 (Awaiting Documentation) Hepatitis C Completed 10/08/2021 HPV Vaccines Aged Out No longer eligi ble based on patient's age to complete this topic Meningococcal B Vaccine Aged Out No l onger eligible based on patient's age to complete this topic Meningococcal Vaccine Aged Out No hema saray eligible based on patient's age to complete this topic Pneumococcal Vaccine: Pediatrics (0 to 5 Years) and At-Risk Patients (6 to 64 Years) Aged Out No longer eligible b ased on patient's age to complete this topic RSV Immunizations Under 20 Months Aged Out No longer eligible b ased on patient's age to complete this topic Procedures Procedure Name Priority Date/Time Associated Diagnosis Comments OUTSIDE CYTOPATH CERV/VAG INTERPRET (PAP) (SCAN ORDER) 01/31/2024 OUTSIDE CYTOPATH CERV/VAG INTERPRET (PAP) 12/05/2021 12:00 AM CDT HEPATITIS C ANTIBODY Routine 10/08/2021 9:54 AM SYSTEMS DEVELOPMENT CONSULTANT Need for hepatitis C screening test from Last 3 Months or Most Recently Relevant to Health Maintenance Results * PAP SMEAR (SCAN ORDER) (01/31/2024) 01/31/2024 [facility] Scanned SCANNING Final Resu lt * PAP SMEAR WITH HPV (12/05/2021 12:00 AM CDT) 12/05/2021 Narrative 12/05/2021 12:00 AM CDT Ordered by an unspecified provider. us Documents Scanned SCANNING Edited Result - Final * HEPATITIS C ANTIBODY (10/08/2021 9:54 AM SYSTEMS DEVELOPMENT CONSULTANT) HEPATITIS C AB NON-REACTI VE NON-REACT SILVER 10/08/2021 8:28 PM SYSTEMS DEVELOPMENT CONSULTANT [facility] Comment: ANTIBODIES TO HCV NOT DETECTED. DOES NOT EXCLUDE THE POSSIBILITY OF EXPOSURE TO HCV. 10/08/2021 9:54 AM SYSTEMS DEVELOPMENT CONSULTANT us Rachna Rosales [facility] Final Res ult [facility] [address] [place] [address], [place] [phone] [id number] from Last 3 Months or Most Recently Relevant to Health Maintenance [place] [address] [facility] Care Teams Program Eligibility Specialist Relationship Specialty Start Date End Date Rachna Rosales NP [address] [address] [place] [address] PCP - General NURSE PRACTITIONER 09/16/21
[2024-09-25 18:27] VITALS: BP 128/89; PULSE 76; RESP 18; TEMP 36.4; O2SAT 98
--- NOTE | 2024-09-25 19:00 | ED.FEMALEGU ---
HPI - Female Genitourinary General Chief complaint: Urogenital-Female Stated complaint: Possible Bladder infection Time Seen by Provider: 09/25/24 19:01 Source: patient, RN notes reviewed and old records reviewed Mode of arrival: ambulatory Limitations: no limitations History of Present Illness HPI Narrative: patient presents with complaints of genital pain after sex with her last night. She reports this has happened in the past, she wants to make sure that she does not have a UTI. She is requesting that we not do a gynecological exam, as she does have 2 school age children with her. She does report that she has an appointment with her primary tomorrow, but wanted to make sure that she did not have a UTI that needed to be treated prior to her point Related Data Home Medications ?Medication ?Instructions ?Recorded ?Confirmed ?Last Taken ?Type levothyroxine 25 mcg capsule 25 mcg PO DAILY 01/26/24 01/31/24 Unknown History spironolactone 100 mg tablet mg 09/25/24 Unknown History tirzepatide 2.5 mg/0.5 mL mg subcut 09/25/24 Unknown History subcutaneous pen injector (Mounjaro) Allergies Allergy/AdvReac Type Severity Reaction Status Date / Time peanut oil Allergy Severe Swelling Verified 01/31/24 13:14 of Lip/Tongue/Throat doxycycline Allergy Mild Rash Verified 09/25/24 19:07 Penicillins Allergy Mild Rash Verified 09/25/24 19:07 tetracycline Allergy Mild Rash Verified 09/25/24 19:07 PEANUTS Allergy Severe Swelling Uncoded 01/31/24 13:14 of Lip/Tongue/Throat Review of Systems Review of Systems: All systems reviewed & are unremarkable except as noted in HPI and below Constitutional: Constitutional: Reports no additional constitutional complaints ENT: Reports system reviewed and no additional complaints, except as documented Cardiovascular: Cardiovascular: Reports no additional cardiovascular complaints Respiratory: Respiratory: Reports no additional respiratory complaints Gastrointestinal: Gastrointestinal: Reports no additional gastrointestinal complaints Genitourinary: Genitourinary: Reports dyspareunia PMFSH Past Medical History Medical History delivery delivered Depression Diverticulosis H/O hidradenitis suppurativa Hidradenitis Hypothyroid Nephrolithiasis Pyelonephritis Recurrent urinary tract infection Family History Family History Father Basal cell carcinoma Mother Depression Alcoholism Sibling Depression Grandparent Heart disease Hypertension Cerebrovascular accident Social History Social History Smoking packs per day: 5 Smoking cigarettes per day: 100.0 Smoking status: Former smoker Tobacco type: cigarettes Alcohol intake: never Alcohol use details: Social, rarely Substance use: unknown Lack of Transportation: No Lack of Food: Never True Current Housing: I Have Housing Concerned About Future Housing: No Difficulty Paying Gas/Electric Bills: No Difficulty Paying for Meds: No Currently Unemployed: No Education: Associate Degree Difficulty w/ Childcare or Family Care: No Living arrangements: with family Gender identity (if verbalized by the patient): Female Comments At the time of my signature, I reviewed and agree with the nursing past medical, surgical, social, and family history. There is no relevant family history pertinent to the patient complaint. Exam Const: General: cooperative, no acute distress, alert and awake Orientation/consciousness: oriented to person, oriented to place and oriented to time HENMT: Head: normal to inspection Resp: Effort & Inspection: normal respiratory effort and able to speak in complete sentences Auscultation: clear to auscultation bilaterally, no crackles, no rales, no rhonchi and no wheezes Cardio: Palpation: normal PMI Rate: regular rate Rhythm: regular rhythm Heart sounds: S1 normal heart sound present and S2 normal heart sound present Neuro: General: oriented to person, oriented to place and oriented to time Cranial nerves: Yes CN's II-XII intact bilaterally Psych: Appearance: grossly normal Thought process: Normal thought process present Insight: Good insight present (Psych) Judgement: Good judgement present (Psych) Course Course Level of Care: Express Care Visit Vital Signs Vital signs: Vital Signs Temperature 97.6 F 09/25/24 18:27 Pulse Rate 76 09/25/24 18:27 Respiratory Rate 18 09/25/24 18:27 Blood Pressure 128/89 09/25/24 18:27 Pulse Oximetry 98 09/25/24 18:27 Oxygen Delivery Room Air 09/25/24 18:27 Temperature 97.6 F 09/25/24 18:27 Pulse Rate 76 09/25/24 18:27 Respiratory Rate 18 09/25/24 18:27 Blood Pressure 128/89 09/25/24 18:27 Pulse Oximetry 98 09/25/24 18:27 Oxygen Delivery Room Air 09/25/24 18:27 Reviewed MDM - Female Genitourinary MDM Narrative Medical decision making narrative: UA without any evidence of UTI. Patient does have history of vaginitis. Supportive care measures discussed. Discharge instructions reviewed with patient, as well as provided in writing per nursing staff. The instructions also include specific and strict return/GO TO THE ER as well as f/u information. All questions have been answered, and the patient deny any further questions with discharge and discharge plan. Some parts of this dictation were generated by voice recognition software and may contain typographical and/or grammatical inaccuracies. Lab Data Labs: Lab Results 09/25/24 Range/Units 19:08 POC Urine Color Yellow POC Urine Clarity Clear POC Urine pH 6.0 POC Ur Specif [place] 1.010 POC Urine Protein Negative (Negative) POC Ur Glucose (UA) Negative (Negative) POC Urine Ketones Negative (Negative) POC Urine Blood Negative (Negative) POC Urine Nitrite Negative (Negative) POC Urine Bilirubin Negative (Negative) POC Urine Urobilinogen 0.2 POC U Leukocyte Esteras Negative (Negative) Discharge Plan Discharge Clinical Impression: Discomfort of vagina Patient Disposition: Home, Self-Care Condition: Stable Instructions: Antibiotic Form, Dyspareunia in Women (DC) Additional Instructions: use [id number] preparations such as tox or witch Stella per package instructions externally to decrease inflammation. Take ibuprofen per package instructions as needed for inflammation and pain. Please follow-up with primary care provider. Emergency department for new or worse symptoms Patient Language: Australian Prescriptions: No Action spironolactone 100 mg tablet Mounjaro 2.5 mg/0.5 mL pen injector SUBCUT levothyroxine 25 mcg capsule 25 mcg PO DAILY Follow-up/Referrals: Connie,ELDON Rodríguez [Primary Care Provider] - 1 Week Time of Disposition: 19:09
[2024-09-25 19:10] LABS: EDUAAPPEAR Clear; EDUABILI Negative (Negative); EDUABLOOD Negative (Negative); EDUACOLOR1 Yellow; EDUAGLUCOSE Negative (Negative); EDUAKETONE Negative (Negative); EDUALEUKO Negative (Negative); EDUANITRATE Negative (Negative); EDUAPROTEIN Negative (Negative); EDUAUROBILI 0.2
== END 2024-09-25 19:18 | disposition home or self-care (01) ==
PROVIDERS: Emergency Provider Nurse Practitioner Family; PCP Nurse Practitioner
DX: R10.2 Pelvic and perineal pain (principal); Z87.891 Personal history of nicotine dependence; E03.9 Hypothyroidism, unspecified
CPT/HCPCS: 81003; 99212; G0463